=== PATIENT | male | born 2000 | race Caucasian/White ===

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

== ENCOUNTER 2023-02-23 10:20 | Emergency (ER) | payer OTHER ==
[~2023-02-23] VITALS: Wt 99.8 kg
[2023-02-23] MEDS ORDERED: VALTREX1000 MG PO (11:30)
== END 2023-02-23 11:46 | disposition home or self-care (01) ==
LOC: ED 10:20
DX: B02.9 Zoster without complications (principal); J45.909 Unspecified asthma, uncomplicated; Z88.1 Allergy status to other antibiotic agents; Z98.890 Other specified postprocedural states